=== PATIENT | female | born 1995 | race Caucasian/White ===

== ENCOUNTER 2019-01-24 15:43 | Inpatient (IN) | payer OTHER ==
[2019-01-24] MEDS ORDERED: ROCURONIUM 50 MG INJ (18:53)
[2019-01-24] MEDS ORDERED: ONDANSETRON 4 MG INJ (18:53)
[2019-01-24] MEDS ORDERED: MIDAZOLAM 1 MG/ML 2 ML INJ (19:17)
[2019-01-24 20:59] LABS: AADO2 Arterial 133.3 mmHg (7.0-24.0); Allen Test ACCEPTAB; Arterial Base Excess 1.6 mmol/L (-3.0-3); Arterial Blood Gas Oxygen Sat 99.7 mmHG (95.0-98.0); Arterial COHb 0.3 % (0.0-3.0); Arterial HCO3 24.7 mmol/L (22.0-26.0); Arterial MetHb 0.4 % (0.0-1.5); Arterial pCO2 33.7 mmhg (35-45); MODE VENT - AC; Site Right Radial
[2019-01-24] MEDS: morphine 2 MG INJ IV (22:01)
[2019-01-24] MEDS: ONDANSETRON 4 MG INJ IV (22:01)
[2019-01-25 00:06] LABS: ADD UMIC YES; UR ASCORBIC ACID 40 mg/dL (NEGATIVE); UR BACTERIA FEW /HPF (NONE SEEN); UR BILIRUBIN (Dip) NEGATIVE (NEGATIVE); UR BLOOD (Dip) NEGATIVE (NEGATIVE); UR CLARITY CLEAR (CLEAR); UR COLOR YELLOW (YELLOW); UR GLUCOSE (Dip) NEGATIVE (NEGATIVE); UR KETONES (Dip) NEGATIVE (NEGATIVE); UR LEUKOCYTE ESTERASE (Dip) NEGATIVE Leu/ul (NEGATIVE); UR NITRITE (Dip) NEGATIVE (NEGATIVE); UR RBC 4 /HPF (0-5); UR SPECIFIC GRAVITY (Dip) 1.053 (1.003-1.030); UR TOTAL PROTEIN (Dip) 1+ mg/dl (NEGATIVE); UR UROBILINOGEN (Dip) NEGATIVE (NEGATIVE); UR WBC 1 /HPF (0-5)
[2019-01-25] MEDS: D5-NS + KCL 20 MEQ 1,000 ML IV ×3 (02:47→13:14)
[2019-01-25] MEDS: morphine 2 MG INJ IV ×3 (03:51→15:41)
[2019-01-25] MEDS: PANTOPRAZOLE 40 MG INJ IV (06:16)
[2019-01-25] MEDS: ENOXAPARIN 40 MG/0.4 ML SYG SC (10:16)
[2019-01-25] MEDS ORDERED: PROCHLORPERAZINE 10 MG INJ IV (10:30)
[2019-01-25] MEDS ORDERED: TRIMETHOBENZAMIDE 300 MG CAP GTB (10:30)
[2019-01-25] MEDS ORDERED: ONDANSETRON (2 MG/2.5 ML PO SYG) GTB (10:30)
[2019-01-25] MEDS ORDERED: LEVALBUTEROL (NEB) 0.31 MG/3 ML AMP NEB (10:30)
[2019-01-25] MEDS ORDERED: ONDANSETRON 4 MG TAB GTB (11:30)
[2019-01-25 11:33] LABS: LACTIC ACID 1.1 mmol/L (0.5-2.0)
[2019-01-25] MEDS ORDERED: LABETALOL 100MG INJ IV (12:00)
[2019-01-25 12:54] LABS: PROCALCITONIN 0.13 ng/mL (0.00-0.10)
[2019-01-25] MEDS: LABETALOL HCL 20MG INJ IV ×2 (12:56→18:28)
[2019-01-25] MEDS: LACTULOSE 30ML CUP PO ×2 (13:00→21:00)
[2019-01-25] MEDS: NYSTATIN SUSP 5 ML CUP PO ×3 (13:00→21:00)
[2019-01-25] MEDS: CEFEPIME 1GM/50 ML (PMX) 50 ML IVPB ×2 (13:14→22:05)
[2019-01-25] MEDS: METOPROLOL 25 MG TAB GTB ×2 (14:00→22:00)
[2019-01-25 14:38] LABS: WHITE BLOOD COUNT 10.3 10^3/ul (4.8-10.8)
[2019-01-25 14:38] LABS: ABNORMAL IP MESSAGE 1; HEMATOCRIT 30.1 % (37.0-47.0); MEAN CORPUSCULAR HEMOGLOBIN 28.5 pg (29.0-33.0); MEAN CORPUSCULAR HGB CONC 29.9 g/dl (32.0-37.0); MEAN CORPUSCULAR VOLUME 95.3 fl (82.0-101.0); MEAN PLATELET VOLUME 13.3 fl (7.4-10.4); PLATELET COUNT 226 10^3/UL (140-415); RED BLOOD COUNT 3.16 10^6/ul (4.20-5.40); RED CELL DISTRIBUTION WIDTH 22.4 % (11.5-14.5)
[2019-01-25 14:45] LABS: ADD MAN DIFF? YES; POSITIVE DIFF @See below
[2019-01-25 14:58] LABS: ALANINE AMINOTRANSFERASE 20 IU/L (13-69); ALBUMIN 2.8 g/dl (3.3-4.9); ALBUMIN/GLOBULIN RATIO 0.93; ALKALINE PHOSPHATASE 97 IU/L (42-121); ANION GAP 6 (5-13); ASPARTATE AMINO TRANSFERASE 34 IU/L (15-46); BILIRUBIN,INDIRECT 0.1 mg/dl (0-1.1); BILIRUBIN,TOTAL 0.1 mg/dl (0.2-1.3); BLOOD UREA NITROGEN 7 mg/dl (7-20); CALCIUM 8.7 mg/dl (8.4-10.2); CARBON DIOXIDE 20 mmol/L (21-31); CHLORIDE 114 mmol/L (97-110); CREATININE 0.45 mg/dl (0.44-1.00); Estimated GFR > 60 mL/min (>60); GLUCOSE 133 mg/dl (70-220); POTASSIUM 3.7 mmol/L (3.5-5.1); SODIUM 140 mmol/L (135-144); TOTAL PROTEIN 5.8 g/dl (6.1-8.1)
[2019-01-25 16:07] LABS: ANISOCYTOSIS 1+ (0-0); BAND NEUTROPHILS #M 0.5 10^3/ul (0.0-0.6); BAND NEUTROPHILS % (M) 5 % (0-4); EOSINOPHILS % (M) 1 % (0-7); ERYTHROBLAST% (NRBC) (M) 1 % (0-0); LYMPHOCYTES #M 2.1 10^3/ul (0.8-2.9); LYMPHOCYTES % (M) 21 % (15-51); MICROCYTOSIS 1+ (0-0); MONOCYTE #M 0.8 10^3/ul (0.3-0.9); MONOCYTES % (M) 8 % (0-11); MYELOCYTES #M 0.4 10^3/ul (0.0-0.0); MYELOCYTES % (M) 4 % (0-0); PLATELET ESTIMATE NORMAL; POLYCHROMASIA 2+ (0-0); SEG NEUT #M 6.3 10^3/ul (1.6-7.5); SEGMENTED NEUTROPHILS (M) % 61 % (39-77); SMUDGE%M 27 % (0-0)
[2019-01-25] MEDS: VALPROIC ACID LIQUID CUP 250 MG/5 ML CUP GTB ×2 (16:58→21:00)
[2019-01-25] MEDS ORDERED: VANCOMYCIN IV PER PHARMACY XX (21:00)
[2019-01-25] MEDS: DOCUSATE SODIUM 10 MG/ML (10ML CUP) GTB (21:00)
[2019-01-25] MEDS: CIPROFLOXACIN 500 MG TAB GTB (21:00)
[2019-01-25] MEDS: POLYETHYLENE GLYCOL 17 GM PACKET GTB (21:00)
[2019-01-25 21:16] LABS: LACTIC ACID 2.2 mmol/L (0.5-2.0)
[2019-01-25] MEDS: VANCOMYCIN 750 MG (PMX) 250 ML IVPB (21:57)
[2019-01-25] MEDS: CHLORHEXIDINE GLUCONATE 15 ML UD CUP MM (21:57)
[2019-01-26] MEDS: LEVETIRACETAM 1000 MG (PMX) 100 ML IVPB ×3 (00:09→21:50)
[2019-01-26] MEDS: morphine 2 MG INJ IV ×2 (00:11→11:23)
[2019-01-26] MEDS: LABETALOL HCL 20MG INJ IV ×4 (00:38→18:41)
[2019-01-26 01:07] LABS: PROCALCITONIN 0.16 ng/mL (0.00-0.10)
[2019-01-26] MEDS: D5-NS + KCL 20 MEQ 1,000 ML IV ×3 (01:55→21:58)
[2019-01-26 05:45] LABS: ABNORMAL IP MESSAGE 1; HEMATOCRIT 30.2 % (37.0-47.0); HEMOGLOBIN 8.9 g/dl (12.0-16.0); MEAN CORPUSCULAR HGB CONC 29.5 g/dl (32.0-37.0); MEAN PLATELET VOLUME 13.1 fl (7.4-10.4); PLATELET COUNT 204 10^3/UL (140-415); RED BLOOD COUNT 3.18 10^6/ul (4.20-5.40); RED CELL DISTRIBUTION WIDTH 22.5 % (11.5-14.5)
[2019-01-26 05:45] LABS: WHITE BLOOD COUNT 7.1 10^3/ul (4.8-10.8)
[2019-01-26 05:58] LABS: ADD MAN DIFF? YES; POSITIVE DIFF @See below
[2019-01-26] MEDS: METOPROLOL 25 MG TAB GTB ×3 (06:00→22:00)
[2019-01-26 06:13] LABS: ANION GAP 8 (5-13); BLOOD UREA NITROGEN 3 mg/dl (7-20); CARBON DIOXIDE 21 mmol/L (21-31); CHLORIDE 115 mmol/L (97-110); CREATININE 0.44 mg/dl (0.44-1.00); Estimated GFR > 60 mL/min (>60); GLUCOSE 114 mg/dl (70-220); MAGNESIUM 1.5 mg/dl (1.7-2.5); PHOSPHORUS 3.3 mg/dl (2.5-4.9); POTASSIUM 3.2 mmol/L (3.5-5.1); SODIUM 144 mmol/L (135-144)
[2019-01-26] MEDS: PANTOPRAZOLE 40 MG INJ IV (06:16)
[2019-01-26] MEDS: ENOXAPARIN 40 MG/0.4 ML SYG SC (06:52)
[2019-01-26 07:22] LABS: LACTIC ACID 1.3 mmol/L (0.5-2.0)
[2019-01-26 07:55] LABS: ANISOCYTOSIS 1+ (0-0); BAND NEUTROPHILS #M 0.2 10^3/ul (0.0-0.6); BAND NEUTROPHILS % (M) 3 % (0-4); EOSINOPHILS % (M) 3 % (0-7); LYMPHOCYTES #M 1.4 10^3/ul (0.8-2.9); LYMPHOCYTES % (M) 21 % (15-51); MICROCYTOSIS 1+ (0-0); MONOCYTE #M 0.3 10^3/ul (0.3-0.9); MONOCYTES % (M) 5 % (0-11); MYELOCYTES #M 0.1 10^3/ul (0.0-0.0); MYELOCYTES % (M) 2 % (0-0); PLATELET ESTIMATE NORMAL; POLYCHROMASIA 3+ (0-0); REACTIVE LYMPHOCYTES #M 0.3 10^3/ul (0.0-0.0); REACTIVE LYMPHOCYTES% (M) 5 % (0-0); SEG NEUT #M 4.3 10^3/ul (1.6-7.5); SEGMENTED NEUTROPHILS (M) % 61 % (39-77); SMUDGE%M 7 % (0-0)
[2019-01-26] MEDS: POTASSIUM CHLORIDE 100 ML IVPB ×2 (07:57→11:22)
[2019-01-26] MEDS: LACTULOSE 30ML CUP PO ×2 (09:00→12:00)
[2019-01-26] MEDS: CIPROFLOXACIN 500 MG TAB GTB ×2 (09:00→21:00)
[2019-01-26] MEDS: NYSTATIN SUSP 5 ML CUP PO ×4 (09:00→21:00)
[2019-01-26] MEDS: POLYETHYLENE GLYCOL 17 GM PACKET GTB (09:00)
[2019-01-26] MEDS ORDERED: NA PHOSPHATE/BIPHOS 133 ML ENEMA PR (09:00)
[2019-01-26] MEDS: FLUCONAZOLE 200 MG TAB GTB (09:00)
[2019-01-26] MEDS: DOCUSATE SODIUM 10 MG/ML (10ML CUP) GTB ×2 (09:00→21:00)
[2019-01-26] MEDS: VALPROIC ACID LIQUID CUP 250 MG/5 ML CUP GTB (09:00)
[2019-01-26] MEDS: LORATADINE (1 MG/ML PO SYG) GTB (09:00)
[2019-01-26] MEDS: MAGNESIUM HYDROXIDE 30ML CUP GTB (09:00)
[2019-01-26] MEDS: CEFEPIME 1GM/50 ML (PMX) 50 ML IVPB ×2 (09:47→22:23)
[2019-01-26] MEDS: BISACODYL 10 MG SUPP PR (10:31)
[2019-01-26] MEDS: CHLORHEXIDINE GLUCONATE 15 ML UD CUP MM ×2 (10:32→22:23)
[2019-01-26] MEDS: VANCOMYCIN 500 MG (PMX) 100 ML IVPB (11:22)
[2019-01-26] MEDS: MAGNESIUM SULFATE 2 GM/50 ML 50 ML IVPB (14:09)
[2019-01-26 14:37] LABS: C-REACTIVE PROTEIN 14.6 mg/dl (0.0-0.9)
[2019-01-26 15:17] LABS: ERYTHROCYTE SEDIMENTATION RATE 60 mm/Hr (0-20)
[2019-01-26] MEDS: VALPROATE INJ 250 MG in SOD CHLORIDE 0.9% 50 ML IVPB ×2 (16:32→22:51)
[2019-01-27] MEDS: VANCOMYCIN 500 MG (PMX) 100 ML IVPB ×2 (00:09→15:12)
[2019-01-27] MEDS: LABETALOL HCL 20MG INJ IV ×4 (00:21→17:10)
[2019-01-27] MEDS: METOPROLOL 25 MG TAB GTB ×3 (06:00→21:30)
[2019-01-27] MEDS: PANTOPRAZOLE 40 MG INJ IV (06:36)
[2019-01-27] MEDS: VALPROATE INJ 250 MG in SOD CHLORIDE 0.9% 50 ML IVPB ×3 (06:43→21:32)
[2019-01-27] MEDS ORDERED: IOHEXOL 14.3 MG(I)/ML (ADULT) BTL PO (08:30)
[2019-01-27] MEDS: LORATADINE 10 MG TAB GTB (09:00)
[2019-01-27] MEDS: MAGNESIUM HYDROXIDE 30ML CUP GTB (09:00)
[2019-01-27] MEDS: CIPROFLOXACIN 500 MG TAB GTB (09:00)
[2019-01-27] MEDS: FLUCONAZOLE 200 MG TAB GTB (09:00)
[2019-01-27] MEDS: IOHEXOL 14.3 MG(I)/ML (ADULT) BTL PO (09:30)
[2019-01-27] MEDS ORDERED: ACETAMINOPHEN (10 MG/ML) IV SYG IV* (09:30)
[2019-01-27] MEDS ORDERED: ACETAMINOPHEN 1000MG/100ML IV 65 ML IVPB (10:00)
[2019-01-27] MEDS: CHLORHEXIDINE GLUCONATE 15 ML UD CUP MM ×2 (10:09→22:52)
[2019-01-27] MEDS: NYSTATIN SUSP 5 ML CUP PO ×4 (10:09→21:00)
[2019-01-27] MEDS: D5-NS + KCL 20 MEQ 1,000 ML IV ×3 (10:10→22:51)
[2019-01-27] MEDS: LEVETIRACETAM 1000 MG (PMX) 100 ML IVPB ×2 (10:11→20:08)
[2019-01-27] MEDS: CEFEPIME 1GM/50 ML (PMX) 50 ML IVPB ×2 (10:11→20:37)
[2019-01-27] MEDS: ENOXAPARIN 40 MG/0.4 ML SYG SC (10:30)
[2019-01-27 12:30] LABS: ADD MAN DIFF? NO
[2019-01-27 12:34] LABS: ABNORMAL IP MESSAGE 1; BASOPHIL # 0.1 10^3/ul (0.0-0.1); BASOPHILS % 0.5 % (0.0-2.0); EOSINOPHILS # 0.5 10^3/ul (0.0-0.5); EOSINOPHILS % 4.9 % (0.0-7.0); HEMATOCRIT 29.9 % (37.0-47.0); HEMOGLOBIN 8.7 g/dl (12.0-16.0); LYMPHOCYTES # 2.3 10^3/ul (0.8-2.9); LYMPHOCYTES % 24.8 % (15.0-51.0); MEAN CORPUSCULAR HEMOGLOBIN 28.4 pg (29.0-33.0); MEAN CORPUSCULAR HGB CONC 29.1 g/dl (32.0-37.0); MEAN CORPUSCULAR VOLUME 97.7 fl (82.0-101.0); MEAN PLATELET VOLUME 12.1 fl (7.4-10.4); MONOCYTES % 10.6 % (0.0-11.0); NEUTROPHIL # 5.3 10^3/ul (1.6-7.5); NEUTROPHILS % 56.3 % (39.0-77.0); PLATELET COUNT 247 10^3/UL (140-415); RED BLOOD COUNT 3.06 10^6/ul (4.20-5.40); RED CELL DISTRIBUTION WIDTH 22.5 % (11.5-14.5)
[2019-01-27 12:34] LABS: WHITE BLOOD COUNT 9.4 10^3/ul (4.8-10.8)
[2019-01-27 12:39] LABS: POSITIVE DIFF @See below
[2019-01-27 12:54] LABS: ANION GAP 8 (5-13); BLOOD UREA NITROGEN 3 mg/dl (7-20); CALCIUM 9.2 mg/dl (8.4-10.2); CARBON DIOXIDE 18 mmol/L (21-31); CHLORIDE 113 mmol/L (97-110); CREATININE 0.48 mg/dl (0.44-1.00); Estimated GFR > 60 mL/min (>60); GLUCOSE 89 mg/dl (70-220); PHOSPHORUS 5.6 mg/dl (2.5-4.9); POTASSIUM 4.5 mmol/L (3.5-5.1); SODIUM 139 mmol/L (135-144)
[2019-01-27 12:58] LABS: VANCOMYCIN,TROUGH 13.9 ug/ml (10.0-20.0)
[2019-01-28] MEDS: LABETALOL HCL 20MG INJ IV ×2 (06:00)
[2019-01-28] MEDS: METOPROLOL 25 MG TAB GTB ×3 (06:00→22:00)
[2019-01-28 06:33] LABS: ADD MAN DIFF? NO
[2019-01-28] MEDS: PANTOPRAZOLE 40 MG INJ IV (06:35)
[2019-01-28 06:40] LABS: ABNORMAL IP MESSAGE 1; BASOPHILS % 0.5 % (0.0-2.0); EOSINOPHILS # 0.4 10^3/ul (0.0-0.5); EOSINOPHILS % 5.7 % (0.0-7.0); HEMATOCRIT 30.4 % (37.0-47.0); LYMPHOCYTES # 1.8 10^3/ul (0.8-2.9); LYMPHOCYTES % 23.1 % (15.0-51.0); MEAN CORPUSCULAR HEMOGLOBIN 28.5 pg (29.0-33.0); MEAN CORPUSCULAR HGB CONC 29.6 g/dl (32.0-37.0); MEAN CORPUSCULAR VOLUME 96.2 fl (82.0-101.0); MEAN PLATELET VOLUME 12.8 fl (7.4-10.4); MONOCYTE # 0.9 10^3/ul (0.3-0.9); MONOCYTES % 11.4 % (0.0-11.0); NEUTROPHIL # 4.4 10^3/ul (1.6-7.5); NEUTROPHILS % 56.5 % (39.0-77.0); PLATELET COUNT 259 10^3/UL (140-415); RED BLOOD COUNT 3.16 10^6/ul (4.20-5.40); RED CELL DISTRIBUTION WIDTH 22.2 % (11.5-14.5)
[2019-01-28 06:40] LABS: WHITE BLOOD COUNT 7.8 10^3/ul (4.8-10.8)
[2019-01-28] MEDS: ENOXAPARIN 40 MG/0.4 ML SYG SC (06:45)
[2019-01-28 06:58] LABS: POSITIVE DIFF @See below
[2019-01-28] MEDS ORDERED: LABETALOL HCL 20MG INJ IV (07:00)
[2019-01-28] MEDS: VALPROATE INJ 250 MG in SOD CHLORIDE 0.9% 50 ML IVPB ×3 (07:06→22:52)
[2019-01-28 07:17] LABS: VALPROATE 24 ug/ml (50-100)
[2019-01-28 07:21] LABS: ANION GAP 9 (5-13); BLOOD UREA NITROGEN 3 mg/dl (7-20); CALCIUM 9.3 mg/dl (8.4-10.2); CARBON DIOXIDE 17 mmol/L (21-31); CHLORIDE 116 mmol/L (97-110); CREATININE 0.45 mg/dl (0.44-1.00); Estimated GFR > 60 mL/min (>60); GLUCOSE 94 mg/dl (70-220); MAGNESIUM 1.9 mg/dl (1.7-2.5); PHOSPHORUS 4.6 mg/dl (2.5-4.9); POTASSIUM 3.7 mmol/L (3.5-5.1); SODIUM 142 mmol/L (135-144)
[2019-01-28] MEDS: MAGNESIUM HYDROXIDE 30ML CUP GTB (09:00)
[2019-01-28] MEDS: FLUCONAZOLE 200 MG TAB GTB (09:00)
[2019-01-28] MEDS: CHLORHEXIDINE GLUCONATE 15 ML UD CUP MM ×2 (09:00→21:41)
[2019-01-28] MEDS: LORATADINE 10 MG TAB GTB (09:00)
[2019-01-28] MEDS: NYSTATIN SUSP 5 ML CUP PO ×4 (09:00→21:00)
[2019-01-28] MEDS: CEFEPIME 1GM/50 ML (PMX) 50 ML IVPB ×2 (09:15→21:36)
[2019-01-28] MEDS: LEVETIRACETAM 1000 MG (PMX) 100 ML IVPB ×2 (09:16→20:58)
[2019-01-28] MEDS: VANCOMYCIN 500 MG (PMX) 100 ML IVPB (11:18)
[2019-01-28] MEDS: IOHEXOL 14.3 MG(I)/ML (ADULT) BTL PO (11:18)
[2019-01-28] MEDS: D5-NS + KCL 20 MEQ 1,000 ML IV ×2 (14:28→23:55)
[2019-01-29] MEDS: VANCOMYCIN 500 MG (PMX) 100 ML IVPB ×2 (03:35→21:32)
[2019-01-29] MEDS: PANTOPRAZOLE 40 MG INJ IV (05:38)
[2019-01-29] MEDS: VALPROATE INJ 250 MG in SOD CHLORIDE 0.9% 50 ML IVPB (05:39)
[2019-01-29] MEDS: METOPROLOL 25 MG TAB GTB ×3 (05:43→21:33)
[2019-01-29 06:12] LABS: ADD MAN DIFF? NO
[2019-01-29 06:20] LABS: WHITE BLOOD COUNT 7.3 10^3/ul (4.8-10.8)
[2019-01-29 06:20] LABS: ABNORMAL IP MESSAGE 1; BASOPHILS % 0.4 % (0.0-2.0); EOSINOPHILS # 0.5 10^3/ul (0.0-0.5); HEMATOCRIT 29.8 % (37.0-47.0); HEMOGLOBIN 8.9 g/dl (12.0-16.0); LYMPHOCYTES # 2.7 10^3/ul (0.8-2.9); LYMPHOCYTES % 36.6 % (15.0-51.0); MEAN CORPUSCULAR HEMOGLOBIN 27.5 pg (29.0-33.0); MEAN CORPUSCULAR HGB CONC 29.9 g/dl (32.0-37.0); MONOCYTE # 0.8 10^3/ul (0.3-0.9); NEUTROPHIL # 3.1 10^3/ul (1.6-7.5); NEUTROPHILS % 42.1 % (39.0-77.0); PLATELET COUNT 143 10^3/UL (140-415); RED BLOOD COUNT 3.24 10^6/ul (4.20-5.40); RED CELL DISTRIBUTION WIDTH 21.3 % (11.5-14.5)
[2019-01-29 06:34] LABS: POSITIVE DIFF @See below
[2019-01-29 06:40] LABS: VALPROATE 60 ug/ml (50-100)
[2019-01-29 06:42] LABS: ANION GAP 9 (5-13); BLOOD UREA NITROGEN 2 mg/dl (7-20); CALCIUM 9.1 mg/dl (8.4-10.2); CARBON DIOXIDE 16 mmol/L (21-31); CHLORIDE 113 mmol/L (97-110); CREATININE 0.43 mg/dl (0.44-1.00); Estimated GFR > 60 mL/min (>60); GLUCOSE 95 mg/dl (70-220); MAGNESIUM 1.6 mg/dl (1.7-2.5); PHOSPHORUS 3.8 mg/dl (2.5-4.9); POTASSIUM 3.2 mmol/L (3.5-5.1); SODIUM 138 mmol/L (135-144)
[2019-01-29] MEDS: ENOXAPARIN 40 MG/0.4 ML SYG SC (07:03)
[2019-01-29] MEDS: MAGNESIUM HYDROXIDE 30ML CUP GTB (09:00)
[2019-01-29] MEDS: LEVETIRACETAM 1000 MG (PMX) 100 ML IVPB ×2 (09:05→20:00)
[2019-01-29] MEDS: CHLORHEXIDINE GLUCONATE 15 ML UD CUP MM ×2 (09:13→20:33)
[2019-01-29] MEDS: NYSTATIN SUSP 5 ML CUP PO ×4 (09:50→20:33)
[2019-01-29] MEDS: FLUCONAZOLE 200 MG TAB GTB (09:50)
[2019-01-29] MEDS: LORATADINE 10 MG TAB GTB (09:50)
[2019-01-29] MEDS: CEFEPIME 1GM/50 ML (PMX) 50 ML IVPB ×2 (09:51→20:33)
[2019-01-29] MEDS: SOD CHLORIDE 0.9% 100 ML (09:51)
[2019-01-29] MEDS: IOHEXOL 300MG/ML 150 ML BTL (09:52)
[2019-01-29] MEDS: MAGNESIUM SULFATE 2 GM/50 ML 50 ML IVPB (10:53)
[2019-01-29] MEDS: POTASSIUM CHLORIDE 100 ML IVPB ×2 (13:46→16:54)
[2019-01-29] MEDS: morphine 2 MG INJ IV ×2 (15:44→21:32)
[2019-01-29] MEDS: D5-NS + KCL 20 MEQ 1,000 ML IV ×2 (16:58→19:56)
[2019-01-29] MEDS: METOCLOPRAMIDE 10 MG INJ IV (17:06)
[2019-01-29] MEDS: VALPROATE INJ 500 MG in SOD CHLORIDE 0.9% 50 ML IVPB (18:10)
[2019-01-29 22:01] LABS: VANCOMYCIN,TROUGH 6.2 ug/ml (10.0-20.0)
[2019-01-30] MEDS: METOCLOPRAMIDE 10 MG INJ IV ×5 (00:26→23:58)
[2019-01-30] MEDS: VALPROATE INJ 500 MG in SOD CHLORIDE 0.9% 50 ML IVPB ×2 (03:39→14:00)
[2019-01-30 05:27] LABS: ADD MAN DIFF? NO
[2019-01-30] MEDS: PANTOPRAZOLE 40 MG INJ IV (06:07)
[2019-01-30] MEDS: METOPROLOL 25 MG TAB GTB ×3 (06:08→21:13)
[2019-01-30] MEDS: ENOXAPARIN 40 MG/0.4 ML SYG SC (06:17)
[2019-01-30 06:33] LABS: ANION GAP 10 (5-13); BLOOD UREA NITROGEN 3 mg/dl (7-20); CALCIUM 8.9 mg/dl (8.4-10.2); CARBON DIOXIDE 14 mmol/L (21-31); CHLORIDE 115 mmol/L (97-110); CREATININE 0.42 mg/dl (0.44-1.00); Estimated GFR > 60 mL/min (>60); GLUCOSE 70 mg/dl (70-220); SODIUM 139 mmol/L (135-144)
[2019-01-30 07:05] LABS: WHITE BLOOD COUNT 5.8 10^3/ul (4.8-10.8)
[2019-01-30 07:05] LABS: ABNORMAL IP MESSAGE 1; BASOPHILS % 0.7 % (0.0-2.0); EOSINOPHILS # 0.6 10^3/ul (0.0-0.5); EOSINOPHILS % 10.7 % (0.0-7.0); HEMATOCRIT 27.8 % (37.0-47.0); HEMOGLOBIN 8.7 g/dl (12.0-16.0); LYMPHOCYTES # 2.3 10^3/ul (0.8-2.9); LYMPHOCYTES % 39.5 % (15.0-51.0); MEAN CORPUSCULAR HEMOGLOBIN 28.9 pg (29.0-33.0); MEAN CORPUSCULAR HGB CONC 31.3 g/dl (32.0-37.0); MEAN CORPUSCULAR VOLUME 92.4 fl (82.0-101.0); MEAN PLATELET VOLUME 12.4 fl (7.4-10.4); MONOCYTE # 0.6 10^3/ul (0.3-0.9); MONOCYTES % 9.5 % (0.0-11.0); NEUTROPHIL # 2.2 10^3/ul (1.6-7.5); PLATELET COUNT 164 10^3/UL (140-415); RED BLOOD COUNT 3.01 10^6/ul (4.20-5.40); RED CELL DISTRIBUTION WIDTH 21.2 % (11.5-14.5)
[2019-01-30 07:06] LABS: POSITIVE DIFF @See below
[2019-01-30] MEDS: CEFEPIME 1GM/50 ML (PMX) 50 ML IVPB ×2 (09:33→21:35)
[2019-01-30] MEDS: LEVETIRACETAM 1000 MG (PMX) 100 ML IVPB ×2 (09:34→21:12)
[2019-01-30] MEDS: LORATADINE 10 MG TAB GTB (09:34)
[2019-01-30] MEDS: FLUCONAZOLE 200 MG TAB GTB (09:34)
[2019-01-30] MEDS: NYSTATIN SUSP 5 ML CUP PO ×4 (09:35→22:15)
[2019-01-30] MEDS: CHLORHEXIDINE GLUCONATE 15 ML UD CUP MM ×2 (09:35→21:13)
[2019-01-30] MEDS: MAGNESIUM HYDROXIDE 30ML CUP GTB (09:35)
[2019-01-30] MEDS: D5W-0.45 NACL + KCL 20 MEQ 1,000 ML IV ×2 (09:39→21:13)
[2019-01-30 10:02] LABS: VALPROATE 80 ug/ml (50-100)
[2019-01-30] MEDS: VANCOMYCIN 500 MG (PMX) 100 ML IVPB ×2 (10:09→22:15)
[2019-01-31] MEDS: VALPROATE INJ 500 MG in SOD CHLORIDE 0.9% 50 ML IVPB (01:49)
[2019-01-31 05:40] LABS: WHITE BLOOD COUNT 6.8 10^3/ul (4.8-10.8)
[2019-01-31 05:40] LABS: HEMATOCRIT 28.9 % (37.0-47.0); HEMOGLOBIN 8.8 g/dl (12.0-16.0); MEAN CORPUSCULAR HEMOGLOBIN 27.8 pg (29.0-33.0); MEAN CORPUSCULAR HGB CONC 30.4 g/dl (32.0-37.0); MEAN CORPUSCULAR VOLUME 91.2 fl (82.0-101.0); MEAN PLATELET VOLUME 11.5 fl (7.4-10.4); PLATELET COUNT 300 10^3/UL (140-415); RED BLOOD COUNT 3.17 10^6/ul (4.20-5.40); RED CELL DISTRIBUTION WIDTH 21.2 % (11.5-14.5)
[2019-01-31] MEDS: PANTOPRAZOLE 40 MG INJ IV (05:53)
[2019-01-31] MEDS: METOCLOPRAMIDE 10 MG INJ IV ×3 (05:53→17:16)
[2019-01-31] MEDS: METOPROLOL 25 MG TAB GTB ×3 (05:54→22:25)
[2019-01-31 06:00] LABS: ANION GAP 8 (5-13); BLOOD UREA NITROGEN 3 mg/dl (7-20); CARBON DIOXIDE 17 mmol/L (21-31); CHLORIDE 114 mmol/L (97-110); CREATININE 0.41 mg/dl (0.44-1.00); Estimated GFR > 60 mL/min (>60); GLUCOSE 92 mg/dl (70-220); MAGNESIUM 1.7 mg/dl (1.7-2.5); PHOSPHORUS 3.6 mg/dl (2.5-4.9); POTASSIUM 3.4 mmol/L (3.5-5.1); SODIUM 139 mmol/L (135-144)
[2019-01-31 06:03] LABS: VALPROATE 102 ug/ml (50-100)
[2019-01-31 06:04] LABS: POSITIVE DIFF @See below
[2019-01-31 06:05] LABS: ADD MAN DIFF? YES
[2019-01-31] MEDS: ENOXAPARIN 40 MG/0.4 ML SYG SC (06:27)
[2019-01-31 07:42] LABS: ANISOCYTOSIS 1+ (0-0); BAND NEUTROPHILS #M 0.4 10^3/ul (0.0-0.6); BAND NEUTROPHILS % (M) 7 % (0-4); BASOPHILS % (M) 1 % (0-2); BURR CELLS 1+ (0-0); EOSINOPHILS % (M) 11 % (0-7); LYMPHOCYTES #M 2.3 10^3/ul (0.8-2.9); LYMPHOCYTES % (M) 35 % (15-51); MICROCYTOSIS 1+ (0-0); MONOCYTE #M 0.3 10^3/ul (0.3-0.9); MONOCYTES % (M) 5 % (0-11); MYELOCYTES #M 0.1 10^3/ul (0.0-0.0); MYELOCYTES % (M) 2 % (0-0); PLATELET ESTIMATE NORMAL; POLYCHROMASIA 2+ (0-0); REACTIVE LYMPHOCYTES #M 0.1 10^3/ul (0.0-0.0); REACTIVE LYMPHOCYTES% (M) 2 % (0-0); SEG NEUT #M 2.5 10^3/ul (1.6-7.5); SEGMENTED NEUTROPHILS (M) % 37 % (39-77); SMUDGE%M 52 % (0-0)
[2019-01-31] MEDS: CHLORHEXIDINE GLUCONATE 15 ML UD CUP MM ×2 (07:51→22:25)
[2019-01-31] MEDS: MAGNESIUM HYDROXIDE 30ML CUP GTB (07:52)
[2019-01-31] MEDS: CEFEPIME 1GM/50 ML (PMX) 50 ML IVPB ×2 (07:52→22:25)
[2019-01-31] MEDS: FLUCONAZOLE 200 MG TAB GTB (07:52)
[2019-01-31] MEDS: NYSTATIN SUSP 5 ML CUP PO ×4 (07:52→22:25)
[2019-01-31] MEDS: LORATADINE 10 MG TAB GTB (07:52)
[2019-01-31] MEDS: LEVETIRACETAM 1000 MG (PMX) 100 ML IVPB ×2 (07:52→20:26)
[2019-01-31] MEDS: D5W-0.45 NACL + KCL 20 MEQ 1,000 ML IV (10:25)
[2019-01-31] MEDS: VANCOMYCIN 500 MG (PMX) 100 ML IVPB ×2 (10:25→22:38)
[2019-01-31] MEDS: MAGNESIUM SULFATE 2 GM/50 ML 50 ML IVPB (11:24)
[2019-01-31] MEDS: POTASSIUM CHLORIDE 100 ML IVPB ×2 (13:35→15:43)
[2019-01-31 21:37] LABS: VANCOMYCIN,TROUGH 12.6 ug/ml (10.0-20.0)
[2019-01-31] MEDS: ACETAMINOPHEN 650MG/20.3ML CUP GTB (22:28)
[2019-02-01] MEDS: METOCLOPRAMIDE 10 MG INJ IV ×5 (00:32→23:03)
[2019-02-01] MEDS: VALPROATE INJ 250 MG in SOD CHLORIDE 0.9% 50 ML IVPB ×2 (01:49→13:36)
[2019-02-01] MEDS: PANTOPRAZOLE 40 MG INJ IV (06:37)
[2019-02-01] MEDS: METOPROLOL 25 MG TAB GTB ×3 (06:38→21:37)
[2019-02-01 06:52] LABS: VALPROATE 65 ug/ml (50-100)
[2019-02-01] MEDS: ENOXAPARIN 40 MG/0.4 ML SYG SC (07:03)
[2019-02-01 08:49] LABS: ALANINE AMINOTRANSFERASE 19 IU/L (13-69); ALBUMIN 2.9 g/dl (3.3-4.9); ALKALINE PHOSPHATASE 102 IU/L (42-121); ASPARTATE AMINO TRANSFERASE 25 IU/L (15-46)
[2019-02-01 08:52] LABS: ANION GAP 8 (5-13); CARBON DIOXIDE 15 mmol/L (21-31); CHLORIDE 116 mmol/L (97-110); Estimated GFR > 60 mL/min (>60); GLUCOSE 98 mg/dl (70-220); POTASSIUM 3.5 mmol/L (3.5-5.1); SODIUM 139 mmol/L (135-144)
[2019-02-01 08:53] LABS: BLOOD UREA NITROGEN < 2 mg/dl (7-20)
[2019-02-01] MEDS: MAGNESIUM HYDROXIDE 30ML CUP GTB (09:00)
[2019-02-01] MEDS: CEFEPIME 1GM/50 ML (PMX) 50 ML IVPB ×2 (09:51→21:37)
[2019-02-01] MEDS: NYSTATIN SUSP 5 ML CUP PO ×4 (09:51→21:36)
[2019-02-01] MEDS: ONDANSETRON 4 MG INJ IV ×2 (09:51→21:36)
[2019-02-01] MEDS: FLUCONAZOLE 200 MG TAB GTB (09:51)
[2019-02-01] MEDS: LORATADINE 10 MG TAB GTB (09:51)
[2019-02-01] MEDS: CHLORHEXIDINE GLUCONATE 15 ML UD CUP MM ×2 (09:51→21:36)
[2019-02-01] MEDS: LEVETIRACETAM 1000 MG (PMX) 100 ML IVPB ×2 (09:52→21:37)
[2019-02-01] MEDS: VANCOMYCIN 500 MG (PMX) 100 ML IVPB ×2 (10:24→22:55)
[2019-02-01] MEDS: D5W-0.45 NACL + KCL 20 MEQ 1,000 ML IV ×2 (10:24)
[2019-02-01] MEDS: ACETAMINOPHEN 650MG/20.3ML CUP GTB (21:36)
[2019-02-02] MEDS: VALPROATE INJ 250 MG in SOD CHLORIDE 0.9% 50 ML IVPB ×3 (01:47→17:26)
[2019-02-02] MEDS: D5W-0.45 NACL + KCL 20 MEQ 1,000 ML IV ×2 (02:40→06:35)
[2019-02-02] MEDS: PANTOPRAZOLE 40 MG INJ IV (06:24)
[2019-02-02] MEDS: METOCLOPRAMIDE 10 MG INJ IV ×4 (06:24→23:58)
[2019-02-02] MEDS: METOPROLOL 25 MG TAB GTB ×3 (06:27→22:15)
[2019-02-02] MEDS: ENOXAPARIN 40 MG/0.4 ML SYG SC (06:52)
[2019-02-02] MEDS: CHLORHEXIDINE GLUCONATE 15 ML UD CUP MM ×2 (09:00→22:14)
[2019-02-02] MEDS: MAGNESIUM HYDROXIDE 30ML CUP GTB (09:00)
[2019-02-02] MEDS: LEVETIRACETAM 1000 MG (PMX) 100 ML IVPB ×2 (09:00→22:14)
[2019-02-02] MEDS: NYSTATIN SUSP 5 ML CUP PO ×4 (09:01→22:14)
[2019-02-02] MEDS: LORATADINE 10 MG TAB GTB (09:37)
[2019-02-02] MEDS: FLUCONAZOLE 200 MG TAB GTB (09:37)
[2019-02-02] MEDS: CEFEPIME 1GM/50 ML (PMX) 50 ML IVPB (09:37)
[2019-02-02] MEDS: VANCOMYCIN 500 MG (PMX) 100 ML IVPB ×3 (10:36→23:59)
[2019-02-02 10:37] LABS: ADD MAN DIFF? NO
[2019-02-02 10:38] LABS: BASOPHILS % 0.5 % (0.0-2.0); EOSINOPHILS # 0.3 10^3/ul (0.0-0.5); EOSINOPHILS % 4.1 % (0.0-7.0); HEMATOCRIT 29.5 % (37.0-47.0); LYMPHOCYTES # 2.6 10^3/ul (0.8-2.9); LYMPHOCYTES % 34.7 % (15.0-51.0); MEAN CORPUSCULAR HGB CONC 30.5 g/dl (32.0-37.0); MEAN CORPUSCULAR VOLUME 95.2 fl (82.0-101.0); MEAN PLATELET VOLUME 11.7 fl (7.4-10.4); MONOCYTE # 0.6 10^3/ul (0.3-0.9); MONOCYTES % 8.6 % (0.0-11.0); NEUTROPHIL # 3.6 10^3/ul (1.6-7.5); NEUTROPHILS % 48.7 % (39.0-77.0); PLATELET COUNT 307 10^3/UL (140-415); RED CELL DISTRIBUTION WIDTH 21.5 % (11.5-14.5)
[2019-02-02 10:38] LABS: WHITE BLOOD COUNT 7.4 10^3/ul (4.8-10.8)
[2019-02-02 10:57] LABS: ANION GAP 6 (5-13); BLOOD UREA NITROGEN 5 mg/dl (7-20); CALCIUM 8.7 mg/dl (8.4-10.2); CARBON DIOXIDE 19 mmol/L (21-31); CHLORIDE 113 mmol/L (97-110); CREATININE 0.46 mg/dl (0.44-1.00); Estimated GFR > 60 mL/min (>60); GLUCOSE 110 mg/dl (70-220); MAGNESIUM 1.7 mg/dl (1.7-2.5); PHOSPHORUS 3.3 mg/dl (2.5-4.9); POTASSIUM 3.8 mmol/L (3.5-5.1); SODIUM 138 mmol/L (135-144)
[2019-02-02 11:04] LABS: VALPROATE 49 ug/ml (50-100)
[2019-02-03] MEDS: VALPROATE INJ 250 MG in SOD CHLORIDE 0.9% 50 ML IVPB ×3 (02:17→18:21)
[2019-02-03] MEDS: METOCLOPRAMIDE 10 MG INJ IV ×3 (05:48→18:21)
[2019-02-03] MEDS: PANTOPRAZOLE 40 MG INJ IV (05:48)
[2019-02-03 06:10] LABS: ADD MAN DIFF? NO
[2019-02-03 06:21] LABS: WHITE BLOOD COUNT 8.6 10^3/ul (4.8-10.8)
[2019-02-03 06:21] LABS: ABNORMAL IP MESSAGE 1; BASOPHIL # 0.1 10^3/ul (0.0-0.1); BASOPHILS % 0.7 % (0.0-2.0); EOSINOPHILS # 0.3 10^3/ul (0.0-0.5); EOSINOPHILS % 3.5 % (0.0-7.0); HEMOGLOBIN 9.3 g/dl (12.0-16.0); LYMPHOCYTES # 2.9 10^3/ul (0.8-2.9); LYMPHOCYTES % 33.1 % (15.0-51.0); MEAN CORPUSCULAR VOLUME 93.4 fl (82.0-101.0); MEAN PLATELET VOLUME 13.2 fl (7.4-10.4); MONOCYTE # 0.8 10^3/ul (0.3-0.9); MONOCYTES % 8.8 % (0.0-11.0); NEUTROPHIL # 4.3 10^3/ul (1.6-7.5); NEUTROPHILS % 49.8 % (39.0-77.0); PLATELET COUNT 194 10^3/UL (140-415); RED BLOOD COUNT 3.32 10^6/ul (4.20-5.40); RED CELL DISTRIBUTION WIDTH 22.4 % (11.5-14.5)
[2019-02-03] MEDS: ENOXAPARIN 40 MG/0.4 ML SYG SC (06:41)
[2019-02-03 06:43] LABS: POSITIVE DIFF @See below
[2019-02-03 06:45] LABS: ANION GAP 8 (5-13); BLOOD UREA NITROGEN 8 mg/dl (7-20); CALCIUM 8.9 mg/dl (8.4-10.2); CARBON DIOXIDE 21 mmol/L (21-31); CHLORIDE 109 mmol/L (97-110); CREATININE 0.38 mg/dl (0.44-1.00); Estimated GFR > 60 mL/min (>60); GLUCOSE 99 mg/dl (70-220); MAGNESIUM 1.8 mg/dl (1.7-2.5); PHOSPHORUS 2.6 mg/dl (2.5-4.9); POTASSIUM 3.8 mmol/L (3.5-5.1); SODIUM 138 mmol/L (135-144)
[2019-02-03] MEDS: METOPROLOL 25 MG TAB GTB ×2 (09:00→21:00)
[2019-02-03] MEDS: FLUCONAZOLE 200 MG TAB GTB (09:42)
[2019-02-03] MEDS: MAGNESIUM HYDROXIDE 30ML CUP GTB (09:43)
[2019-02-03] MEDS: NYSTATIN SUSP 5 ML CUP PO ×4 (09:43→20:46)
[2019-02-03] MEDS: CHLORHEXIDINE GLUCONATE 15 ML UD CUP MM ×2 (09:43→20:46)
[2019-02-03] MEDS: LEVETIRACETAM 1000 MG (PMX) 100 ML IVPB ×2 (09:44→20:46)
[2019-02-03] MEDS: LORATADINE 10 MG TAB GTB (09:44)
[2019-02-03] MEDS: VANCOMYCIN 500 MG (PMX) 100 ML IVPB ×2 (12:36→21:39)
[2019-02-04] MEDS: METOCLOPRAMIDE 10 MG INJ IV ×4 (00:21→17:29)
[2019-02-04] MEDS: VALPROATE INJ 250 MG in SOD CHLORIDE 0.9% 50 ML IVPB ×3 (01:33→17:29)
[2019-02-04] MEDS: morphine 2 MG INJ IV ×2 (04:24→22:48)
[2019-02-04] MEDS: PANTOPRAZOLE 40 MG INJ IV (05:33)
[2019-02-04 06:12] LABS: ADD MAN DIFF? NO
[2019-02-04] MEDS: ENOXAPARIN 40 MG/0.4 ML SYG SC (06:23)
[2019-02-04 06:24] LABS: ABNORMAL IP MESSAGE 1; BASOPHIL # 0.1 10^3/ul (0.0-0.1); BASOPHILS % 0.7 % (0.0-2.0); EOSINOPHILS # 0.1 10^3/ul (0.0-0.5); EOSINOPHILS % 1.3 % (0.0-7.0); HEMOGLOBIN 9.2 g/dl (12.0-16.0); LYMPHOCYTES # 3.5 10^3/ul (0.8-2.9); LYMPHOCYTES % 33.8 % (15.0-51.0); MEAN CORPUSCULAR HEMOGLOBIN 28.8 pg (29.0-33.0); MEAN CORPUSCULAR HGB CONC 30.7 g/dl (32.0-37.0); MEAN PLATELET VOLUME 11.8 fl (7.4-10.4); MONOCYTE # 0.9 10^3/ul (0.3-0.9); MONOCYTES % 8.3 % (0.0-11.0); NEUTROPHIL # 5.4 10^3/ul (1.6-7.5); NEUTROPHILS % 52.1 % (39.0-77.0); PLATELET COUNT 350 10^3/UL (140-415); RED BLOOD COUNT 3.19 10^6/ul (4.20-5.40); RED CELL DISTRIBUTION WIDTH 22.3 % (11.5-14.5)
[2019-02-04 06:24] LABS: WHITE BLOOD COUNT 10.3 10^3/ul (4.8-10.8)
[2019-02-04 07:00] LABS: ANION GAP 6 (5-13); BLOOD UREA NITROGEN 12 mg/dl (7-20); CARBON DIOXIDE 22 mmol/L (21-31); CHLORIDE 111 mmol/L (97-110); Estimated GFR > 60 mL/min (>60); GLUCOSE 108 mg/dl (70-220); MAGNESIUM 1.9 mg/dl (1.7-2.5); POTASSIUM 3.9 mmol/L (3.5-5.1); SODIUM 139 mmol/L (135-144)
[2019-02-04 07:44] LABS: POSITIVE DIFF @See below
[2019-02-04] MEDS: METOPROLOL 25 MG TAB GTB ×2 (09:00→21:28)
[2019-02-04] MEDS: LEVETIRACETAM 1000 MG (PMX) 100 ML IVPB ×2 (09:23→21:29)
[2019-02-04] MEDS: NYSTATIN SUSP 5 ML CUP PO ×4 (09:27→21:27)
[2019-02-04] MEDS: MAGNESIUM HYDROXIDE 30ML CUP GTB (09:27)
[2019-02-04] MEDS: CHLORHEXIDINE GLUCONATE 15 ML UD CUP MM ×2 (09:27→21:29)
[2019-02-04] MEDS: NEUTRA-PHOS 250 MG PACKET PO (09:28)
[2019-02-04] MEDS: LORATADINE 10 MG TAB GTB (09:32)
[2019-02-04] MEDS: FLUCONAZOLE 200 MG TAB GTB (09:32)
[2019-02-04] MEDS: VANCOMYCIN 500 MG (PMX) 100 ML IVPB ×2 (09:33→22:32)
[2019-02-04] MEDS: LACTOBACILLUS RHAMNOSUS CAP GTB (21:27)
[2019-02-04 21:38] LABS: VANCOMYCIN,TROUGH 11.5 ug/ml (10.0-20.0)
[2019-02-05] MEDS: METOCLOPRAMIDE 10 MG INJ IV ×5 (00:33→22:09)
[2019-02-05] MEDS: VALPROATE INJ 250 MG in SOD CHLORIDE 0.9% 50 ML IVPB ×3 (01:17→17:39)
[2019-02-05] MEDS: ACETAMINOPHEN 650MG/20.3ML CUP GTB (01:25)
[2019-02-05] MEDS: PANTOPRAZOLE 40 MG INJ IV (05:05)
[2019-02-05] MEDS: ENOXAPARIN 40 MG/0.4 ML SYG SC (07:38)
[2019-02-05] MEDS: LEVETIRACETAM 1000 MG (PMX) 100 ML IVPB ×2 (08:35→22:01)
[2019-02-05] MEDS: VANCOMYCIN 500 MG (PMX) 100 ML IVPB ×2 (09:44→22:02)
[2019-02-05] MEDS: METOPROLOL 25 MG TAB GTB ×2 (09:49→21:49)
[2019-02-05] MEDS: MAGNESIUM HYDROXIDE 30ML CUP GTB (09:49)
[2019-02-05] MEDS: NYSTATIN SUSP 5 ML CUP PO ×4 (09:49→22:01)
[2019-02-05] MEDS: LORATADINE 10 MG TAB GTB (09:49)
[2019-02-05] MEDS: LACTOBACILLUS RHAMNOSUS CAP GTB ×2 (09:49→21:48)
[2019-02-05] MEDS: CHLORHEXIDINE GLUCONATE 15 ML UD CUP MM ×2 (09:49→21:46)
[2019-02-05] MEDS: FLUCONAZOLE 200 MG TAB GTB (09:49)
[2019-02-05 15:05] LABS: VALPROATE 73 ug/ml (50-100)
[2019-02-06] MEDS: VALPROATE INJ 250 MG in SOD CHLORIDE 0.9% 50 ML IVPB ×3 (02:39→17:41)
[2019-02-06 05:32] LABS: ADD MAN DIFF? NO
[2019-02-06 05:40] LABS: ABNORMAL IP MESSAGE 1; BASOPHIL # 0.1 10^3/ul (0.0-0.1); BASOPHILS % 0.7 % (0.0-2.0); EOSINOPHILS # 1.2 10^3/ul (0.0-0.5); EOSINOPHILS % 10.7 % (0.0-7.0); HEMATOCRIT 33.2 % (37.0-47.0); HEMOGLOBIN 9.9 g/dl (12.0-16.0); LYMPHOCYTES # 3.1 10^3/ul (0.8-2.9); LYMPHOCYTES % 27.5 % (15.0-51.0); MEAN CORPUSCULAR HEMOGLOBIN 28.4 pg (29.0-33.0); MEAN CORPUSCULAR HGB CONC 29.8 g/dl (32.0-37.0); MEAN CORPUSCULAR VOLUME 95.4 fl (82.0-101.0); MEAN PLATELET VOLUME 11.9 fl (7.4-10.4); MONOCYTE # 0.8 10^3/ul (0.3-0.9); NEUTROPHIL # 5.7 10^3/ul (1.6-7.5); NEUTROPHILS % 50.5 % (39.0-77.0); PLATELET COUNT 323 10^3/UL (140-415); RED BLOOD COUNT 3.48 10^6/ul (4.20-5.40); RED CELL DISTRIBUTION WIDTH 22.1 % (11.5-14.5)
[2019-02-06 05:40] LABS: WHITE BLOOD COUNT 11.3 10^3/ul (4.8-10.8)
[2019-02-06 05:51] LABS: POSITIVE DIFF @See below
[2019-02-06 06:08] LABS: ANION GAP 10 (5-13); BLOOD UREA NITROGEN 14 mg/dl (7-20); CALCIUM 9.6 mg/dl (8.4-10.2); CARBON DIOXIDE 21 mmol/L (21-31); CHLORIDE 109 mmol/L (97-110); CREATININE 0.38 mg/dl (0.44-1.00); Estimated GFR > 60 mL/min (>60); GLUCOSE 114 mg/dl (70-220); MAGNESIUM 1.9 mg/dl (1.7-2.5); PHOSPHORUS 2.6 mg/dl (2.5-4.9); POTASSIUM 3.7 mmol/L (3.5-5.1); SODIUM 140 mmol/L (135-144)
[2019-02-06] MEDS: PANTOPRAZOLE 40 MG INJ IV (06:15)
[2019-02-06] MEDS: METOCLOPRAMIDE 10 MG INJ IV ×3 (06:17→17:41)
[2019-02-06] MEDS: ENOXAPARIN 40 MG/0.4 ML SYG SC (06:23)
[2019-02-06] MEDS: LEVETIRACETAM 1000 MG (PMX) 100 ML IVPB ×2 (08:09→21:39)
[2019-02-06] MEDS: NYSTATIN SUSP 5 ML CUP PO ×4 (08:13→21:39)
[2019-02-06] MEDS: LACTOBACILLUS RHAMNOSUS CAP GTB ×2 (08:14→21:41)
[2019-02-06] MEDS: LORATADINE 10 MG TAB GTB (08:14)
[2019-02-06] MEDS: FLUCONAZOLE 200 MG TAB GTB (08:14)
[2019-02-06] MEDS: METOPROLOL 25 MG TAB GTB ×2 (08:14→21:41)
[2019-02-06] MEDS: CHLORHEXIDINE GLUCONATE 15 ML UD CUP MM ×2 (08:15→21:39)
[2019-02-06] MEDS: MAGNESIUM HYDROXIDE 30ML CUP GTB (08:15)
[2019-02-07] MEDS: METOCLOPRAMIDE 10 MG INJ IV ×4 (02:30→17:28)
[2019-02-07] MEDS: VALPROATE INJ 250 MG in SOD CHLORIDE 0.9% 50 ML IVPB (02:33)
[2019-02-07 06:04] LABS: ADD MAN DIFF? NO
[2019-02-07] MEDS: PANTOPRAZOLE 40 MG INJ IV (06:08)
[2019-02-07] MEDS: ENOXAPARIN 40 MG/0.4 ML SYG SC (06:14)
[2019-02-07 06:18] LABS: BASOPHIL # 0.1 10^3/ul (0.0-0.1); BASOPHILS % 0.5 % (0.0-2.0); EOSINOPHILS # 0.4 10^3/ul (0.0-0.5); EOSINOPHILS % 4.2 % (0.0-7.0); HEMATOCRIT 34.7 % (37.0-47.0); HEMOGLOBIN 10.4 g/dl (12.0-16.0); LYMPHOCYTES # 2.5 10^3/ul (0.8-2.9); LYMPHOCYTES % 24.7 % (15.0-51.0); MEAN CORPUSCULAR HEMOGLOBIN 28.5 pg (29.0-33.0); MEAN CORPUSCULAR VOLUME 95.1 fl (82.0-101.0); MONOCYTE # 0.7 10^3/ul (0.3-0.9); MONOCYTES % 7.4 % (0.0-11.0); NEUTROPHIL # 6.1 10^3/ul (1.6-7.5); NEUTROPHILS % 61.4 % (39.0-77.0); PLATELET COUNT 319 10^3/UL (140-415); RED BLOOD COUNT 3.65 10^6/ul (4.20-5.40); RED CELL DISTRIBUTION WIDTH 21.5 % (11.5-14.5)
[2019-02-07] MEDS: CHLORHEXIDINE GLUCONATE 15 ML UD CUP MM ×2 (08:10→21:18)
[2019-02-07] MEDS: MAGNESIUM HYDROXIDE 30ML CUP GTB (08:10)
[2019-02-07] MEDS: FLUCONAZOLE 200 MG TAB GTB (08:11)
[2019-02-07] MEDS: LACTOBACILLUS RHAMNOSUS CAP GTB ×2 (08:11→21:18)
[2019-02-07] MEDS: NYSTATIN SUSP 5 ML CUP PO ×4 (08:11→21:18)
[2019-02-07] MEDS: LORATADINE 10 MG TAB GTB (08:11)
[2019-02-07] MEDS: METOPROLOL 25 MG TAB GTB ×2 (08:12→21:19)
[2019-02-07] MEDS: VALPROIC ACID LIQUID CUP 250 MG/5 ML CUP GTB ×3 (10:54→21:18)
[2019-02-07] MEDS: LEVETIRACETAM (100 MG/ML) 5ML CUP GTB ×2 (10:55→21:18)
[2019-02-08] MEDS: METOCLOPRAMIDE 10 MG INJ IV ×4 (01:43→17:39)
[2019-02-08] MEDS: LANSOPRAZOLE (SOLTAB) 30 MG TAB GTB (06:44)
[2019-02-08] MEDS: ENOXAPARIN 40 MG/0.4 ML SYG SC (06:51)
[2019-02-08] MEDS: MAGNESIUM HYDROXIDE 30ML CUP GTB (09:00)
[2019-02-08] MEDS: NYSTATIN SUSP 5 ML CUP PO ×3 (09:52→17:38)
[2019-02-08] MEDS: LEVETIRACETAM (100 MG/ML) 5ML CUP GTB (09:52)
[2019-02-08] MEDS: CHLORHEXIDINE GLUCONATE 15 ML UD CUP MM (09:52)
[2019-02-08] MEDS: LACTOBACILLUS RHAMNOSUS CAP GTB (09:53)
[2019-02-08] MEDS: VALPROIC ACID LIQUID CUP 250 MG/5 ML CUP GTB ×2 (09:53→12:37)
[2019-02-08] MEDS: LORATADINE 10 MG TAB GTB (09:53)
[2019-02-08] MEDS: METOPROLOL 25 MG TAB GTB (09:54)
[2019-02-08] MEDS: FLUCONAZOLE 200 MG TAB GTB (09:54)
== END 2019-02-08 20:47 | DRG 853 ==
LOC: SDS 15:43 → REC 21:15 → 6WM 23:30 → SDS 16:07
PROC: 0DN84ZZ Release Small Intestine, Percutaneous Endoscopic Approach (ICD-10-PCS; principal; 2019-01-24 18:51)
PROC: 5A1955Z Respiratory Ventilation, Greater than 96 Consecutive Hours (ICD-10-PCS; 2019-01-24 18:51)
DX: A41.9 Sepsis, unspecified organism (principal); G80.0 Spastic quadriplegic cerebral palsy; K56.51 Intestinal adhesions [bands], with partial obstruction; J96.10 Chronic respiratory failure, unspecified whether with hypoxia or hypercapnia; Z99.11 Dependence on respirator [ventilator] status; G91.9 Hydrocephalus, unspecified; G93.49 Other encephalopathy; K56.7 Ileus, unspecified; E87.8 Other disorders of electrolyte and fluid balance, not elsewhere classified; E87.6 Hypokalemia; E83.42 Hypomagnesemia; G40.909 Epilepsy, unspecified, not intractable, without status epilepticus; I10 Essential (primary) hypertension; K52.9 Noninfective gastroenteritis and colitis, unspecified; R13.10 Dysphagia, unspecified; R00.0 Tachycardia, unspecified; Z93.0 Tracheostomy status; Z87.01 Personal history of pneumonia (recurrent); Z98.2 Presence of cerebrospinal fluid drainage device; Z79.01 Long term (current) use of anticoagulants; Z86.11 Personal history of tuberculosis
CPT/HCPCS: 36600; 70450; 71045; 74018; 74177; 80048; 80053; 80076; 80164; 80202; 81001; 82803; 83605; 83735; 84100; 84145; 85025; 85651; 86140; 86635; 87040-91; 87045; 87075; 87086; 88304; 94002; 94003